=== PATIENT | female | born 1955 | race Caucasian/White ===

== ENCOUNTER → 2017-03-18 | Outpatient (CLI) | payer OTHER ==
--- NOTE | 2017-03-18 14:47 | DIAGNOSTIC IMAGING REPORT ---
LEFT PELVIS/UNILATERAL HIP 2-3VIEWS CLINICAL HISTORY: LEFT HIP PAIN pain COMPARISON: None. DISCUSSION: Moderate degenerative change of the hips bilaterally. No evidence for acetabular protrusion. Mild degenerative change sacroiliac joints. Mild osteopenia. There is no evidence for soft tissue swelling. IMPRESSION: Moderate degenerative changes of the hips bilaterally. Mild osteopenia. No acute bony abnormality. Electronically signed by: Marv Moreland M.D. 03/18/2017 2:46 PM Dictated Date/Time: 03/18/2017 2:45 PM
--- NOTE | 2017-03-18 14:49 | DIAGNOSTIC IMAGING REPORT ---
THORACOLUMBAR SPINE 2 VIEWS CLINICAL HISTORY: Right hip pain. FINDINGS: AP and lateral views of the thoracolumbar spine are presented. Correlation is made with abdominal CT dated 08/31/2015. The skeletal structures are osteopenic. Vertebral body height and alignment are maintained throughout the imaged thoracolumbar spine. There is no radiographic evidence of fracture or malalignment. The transverse processes appear intact on the frontal view. The spinous processes are normal as visualized. There is mild degenerative disc space narrowing seen in the lower thoracic region. Atherosclerotic calcification is observed in the abdominal aorta. Cholecystectomy clips are noted. There is a nonobstructed abdominal bowel gas pattern. The imaged bony pelvis seen on the frontal view appears intact. Mild sclerotic change is noted in the sacroiliac joints. IMPRESSION: 1. No acute bony abnormality is identified in the imaged thoracolumbar spine. 2. Osteopenia and mild spondylotic change as above. Electronically signed by: Ric Enamorado M.D. 03/18/2017 2:47 PM Dictated Date/Time: 03/18/2017 2:45 PM
== END | disposition home or self-care (01) ==
LOC: C.RAD1850 14:12
PROVIDERS: ATTEND Internal Medicine Endocrinology, Diabetes & Metabolism
DX: M25.552 Pain in left hip (principal); M81.0 Age-related osteoporosis without current pathological fracture

== ENCOUNTER → 2017-06-09 | Outpatient (CLI) | payer OTHER | END | disposition home or self-care (01) | LOC: C.LABPBG 13:55 | PROVIDERS: ATTEND Internal Medicine Endocrinology, Diabetes & Metabolism | DX: E55.9 Vitamin D deficiency, unspecified (principal) ==